=== PATIENT | female | born 1955 | race American Indian/Alaskan Native ===

== ENCOUNTER 2017-08-11 13:41 | Outpatient (CLI) | payer MEDICAID ==
--- NOTE | 2017-08-11 15:02 | Magnetic Resonance Report ---
MRI OF THE BRAIN WITHOUT CONTRAST: HISTORY: Migraine headache, compression on brain PROCEDURE: Multiplanar, multisequence MR imaging of the brain without IV contrast was performed. FINDINGS: No comparison at this facility. 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 This is consistent with a Chiari 1 malformation. There are a few scattered foci of increased T2 signal within the subcortical white matter of both frontal lobes which is a nonspecific finding. The remaining brain parenchyma and its hester white interface are normal on all sequences. No evidence for acute ischemia, hemorrhage or mass. No chronic infarct or extra-axial fluid collection. The midline structures are central. The basal cisterns are patent. Normal ventricular size. The orbital cavities and sella turcica demonstrate no abnormality. The visualized paranasal sinuses and mastoid air cells are well aerated. IMPRESSION: No acute intracranial process. Cerebellar tonsillar ectopia. Minimal nonspecific chronic white matter changes primarily in the frontal lobes.
== END 2017-08-11 13:42 | disposition home or self-care (01) ==
LOC: MRI 13:41
PROVIDERS: ATTEND Psychiatry & Neurology Neurology
DX: G43.901 Migraine, unspecified, not intractable, with status migrainosus (principal); G93.5 Compression of brain; Q04.8 Other specified congenital malformations of brain; R90.82 White matter disease, unspecified
CPT/HCPCS: 70551